=== PATIENT | male | born 1995 | race African-American/Black ===

== ENCOUNTER 2016-10-19 21:53 | Emergency (ER) | payer OTHER ==
[2016-10-19 22:41] VITALS: BP 138/67
--- NOTE | 2016-10-19 23:06 | RAD ---
PROCEDURE CT head without contrast. HISTORY Fall, headache. Loss of consciousness. TECHNIQUE Noncontrast CT head was obtained. One or more of the following individualized dose reduction techniques were utilized for this exam: 1. Automated exposure control. 2. Adjustment of the mA and/or kV according to patient's size. 3. Use of iterative reconstruction technique. COMPARISON None. FINDINGS The ventricles are normal in size and configuration. CSF density lesion is noted in the right temporal lobe just medial to the temporal horn, 14 millimeters in size, could represent choroid fissure cyst or arachnoid cyst. There is no acute intracranial hemorrhage or extra-axial fluid collection. Density in the left frontal region on axial image 15 is on a single slice and an area were artifact is common. There is no mass effect or midline shift. Del Rosario-white differentiation is preserved. The paranasal sinuses and mastoid air cells are clear. IMPRESSION No acute intracranial findings. Electronically signed by: Justen Naylor MD (Oct 19, 2016 23:04:40)
--- NOTE | 2016-10-19 23:13 | PHYS DOC ---
Past Medical History Past Medical History: Asthma Additional Past Medical Histor: [employer] Past Surgical History: No Surgical History Alcohol Use: Rarely Drug Use: None Adult General Chief Complaint Chief Complaint: MECHANICAL FALL HPI HPI Patient is a 21 year old male who presents with complaint of head injury after having a fall at work. Patient states that he was standing on a cart with attached wheels to try to up to a shelf while at work. Patient states that the cart slipped out from under him and caused him to fall onto his left side. Patient states that he hit his head and may have experienced brief loss of consciousness. Patient states that initially he had symptoms of nausea but had no vomiting. Patient states currently he has pain along the left side of his neck but denies any midline neck tenderness. Patient states his nausea has resolved but he does have mild headache currently. Patient denies any significant past medical history and is not currently on any medications. Patient was brought from work to the emergency department for evaluation. Patient currently rates his discomfort as 4 out of 10. Patient states that the injury took place approximately 1 hour prior to arrival. Review of Systems Review of Systems Constitutional: Denies fever or chills [] Eyes: Denies change in visual acuity, redness, or eye pain [] HENT: Denies nasal congestion or sore throat [] Respiratory: Denies cough or shortness of breath [] Cardiovascular: Denies chest pain or edema [] GI: Denies abdominal pain, nausea, vomiting, bloody stools or diarrhea [] : Denies dysuria or hematuria [] Musculoskeletal: Neck pain [] Integument: Denies rash or skin lesions [] Neurologic: Headache, denies focal weakness or sensory changes [] Allergies Allergies Allergies Coded Allergies Type Severity Reaction Last Updated Verified No Known Drug Allergies 10/19/16 No Physical Exam Physical Exam Constitutional: Alert, afebrile, no acute distress. [] HENT: Normocephalic, atraumatic, bilateral external ears normal, oropharynx moist, no oral exudates, nose normal. [] Eyes: PERRLA, EOMI, conjunctiva normal, no discharge. [] Neck: Normal range of motion, no midline tenderness, mild left trapezius muscle tenderness to palpation, supple, no stridor, c-collar cleared at conclusion of exam. [] Cardiovascular:Heart rate regular rhythm, no murmur [] Lungs & Thorax: Bilateral breath sounds clear to auscultation [] Abdomen: Bowel sounds normal, soft, no tenderness, no masses, no pulsatile masses. [] Skin: Warm, dry, no erythema, no rash. [] Back: No tenderness, no CVA tenderness. [] Extremities: No tenderness, no cyanosis, no clubbing, ROM intact, no edema. [] Neurologic: Alert and oriented X 3, normal motor function, normal sensory function, no focal deficits noted. [] Current Patient Data Vital Signs Vital Signs Date Time Temp Pulse Resp B/P Pulse Ox O2 Delivery O2 Flow Rate FiO2 10/19/16 22:41 78 138/67 95 Room Air 10/19/16 21:59 97.8 20 97.8 EKG EKG Not performed [] Radiology/Procedures Radiology/Procedures [facility] [address] [place] [address] IMAGING REPORT Signed PATIENT: WILL IBRAHIM ACCOUNT: [id number] : 1995 LOCATION: ER AGE: 21 SEX: M EXAM STATUS: REG ER ORD. PHYSICIAN: BERRY MCGUIRE MD REASON: fall, head injury, reported LOC PROCEDURE: HEAD WO CONTRAST PROCEDURE CT head without contrast. HISTORY Fall, headache. Loss of consciousness. TECHNIQUE Noncontrast CT head was obtained. One or more of the following individualized dose reduction techniques were utilized for this exam: 1. Automated exposure control. 2. Adjustment of the mA and/or kV according to patient's size. 3. Use of iterative reconstruction technique. COMPARISON None. FINDINGS The ventricles are normal in size and configuration. CSF density lesion is noted in the right temporal lobe just medial to the temporal horn, 14 millimeters in size, could represent choroid fissure cyst or arachnoid cyst. There is no acute intracranial hemorrhage or extra-axial fluid collection. Density in the left frontal region on axial image 15 is on a single slice and an area were artifact is common. There is no mass effect or midline shift. Del Rosario-white differentiation is preserved. The paranasal sinuses and mastoid air cells are clear. IMPRESSION No acute intracranial findings. Electronically signed by: Ludy Naylor MD (Oct 19, 2016 23:04:40) DICTATED and SIGNED BY: LUDY NAYLOR MD DATE: 10/19/16 6843 CC: BERRY MCGUIRE MD; NO PCP ~ [] Course & Med Decision Making Course & Med Decision Making Pertinent Labs and Imaging studies reviewed. (See chart for details) The patient's head CT was negative. Patient's symptoms consistent with mild concussion. The patient was recommended to follow-up with his primary physician before being cleared for full active duty. The patient was cleared for return for light duty at work as outlined in his workman's comp paperwork which was filled out in the emergency department. Advised return emergency department for any worsening symptoms. Patient voiced understanding and in agreement with treatment plan. Dragon Disclaimer Dragon Disclaimer This electronic medical record was generated, in whole or in part, using a voice recognition dictation system. Departure Departure Impression: Primary Impression: Closed head injury with concussion Disposition: 01 HOME, SELF-CARE Condition: STABLE Referrals: NO PCP (PCP) Patient Instructions: Head Injury, Adult Additional Instructions: You will need to follow-up with your primary doctor in 1 week before you are cleared for full active duty. You may return to work at this time under light duty precautions as instructed on your paperwork. Return to the emergency department for any worsening symptoms. Problem Qualifiers Primary Impression: Closed head injury with concussion Encounter type: initial encounter Loss of consciousness presence/duration: with LOC of 30 min or less Qualified Code: S06.0X1A - Concussion with loss of consciousness of 30 minutes or less, initial encounter BERRY MCGUIRE MD Oct 19, 2016 23:13
== END 2016-10-19 23:43 | disposition home or self-care (01) ==
LOC: ER 21:53
DX: S06.0X1A Concussion with loss of consciousness of 30 minutes or less, initial encounter (principal); J45.909 Unspecified asthma, uncomplicated; W01.0XXA Fall on same level from slipping, tripping and stumbling without subsequent striking against object, initial encounter; Y93.89 Activity, other specified; Y92.69 Other specified industrial and construction area as the place of occurrence of the external cause; Y99.8 Other external cause status
CPT/HCPCS: 70450; 99284-25